=== PATIENT | male | born 1985 | race Hispanic/Latino ===

== ENCOUNTER 2018-08-10 10:59 | Emergency (ER) | payer BC ==
[2018-08-10 11:14] VITALS: O2SAT 99
[2018-08-10 11:15] VITALS: BMI 37.8
--- NOTE | 2018-08-10 11:26 | ED PDOC ---
HPI: Abdomen Time Seen by Provider: 08/10/18 11:04 Chief Complaint (Nursing): Abdominal Pain Chief Complaint (Provider): Abdominal pain History Per: Patient History/Exam Limitations: no limitations Outside of [place] travel?: No Current Symptoms Are (Timing): Still Present Location Of Pain/Discomfort: RLQ, LLQ Quality Of Discomfort: "Pain" Associated Symptoms: Diarrhea. denies: Fever, Nausea, Vomiting Additional History Per: Patient Additional Complaint(s): 32yo male, otherwise well, sent to ER from urgent care for evaluation of lower abdominal pain. Patient reports pain has been present since yesterday and is associated with diarrhea. Patient deneis any associated fever, vomiting, or bleeding. No additional complaints. No medications taken for symptoms. PMD: None provided NKDA Past Medical History Reviewed: Historical Data, Nursing Documentation, Vital Signs Vital Signs: Last Vital Signs Temp 98.3 F 08/10/18 11:14 Pulse 85 08/10/18 11:14 Resp 20 08/10/18 11:14 BP 130/75 08/10/18 11:14 Pulse Ox 99 08/10/18 11:14 - Medical History PMH: No Chronic Diseases - Surgical History Surgical History: No Surg Hx - Family History Family History: States: No Known Family Hx - Home Medications Home Medications: Ambulatory Orders Medication Instructions Recorded Naproxen 1 tab PO BID PRN #14 tab 10/28/15 Penicillin VK [Pen-Vee K] 1 tab PO QID #40 tab 10/28/15 Dicyclomine [Dicyclomine HCl] 10 mg PO Q8 #10 cap 08/10/18 - Allergies Allergies/Adverse Reactions: Allergies Allergy/AdvReac Type Severity Reaction Status Date / Time No Known Allergies Allergy Verified 10/28/15 17:04 Review of Systems ROS Statement: Except As Marked, All Systems Reviewed And Found Negative Constitutional: Negative for: Fever, Chills Gastrointestinal: Positive for: Abdominal Pain, Diarrhea. Negative for: Nausea, Vomiting, Hematochezia, Hematemesis Physical Exam - Reviewed Nursing Documentation Reviewed: Yes Vital Signs Reviewed: Yes - Physical Exam Appears: Positive for: Non-toxic, No Acute Distress Head Exam: Positive for: ATRAUMATIC, NORMAL INSPECTION, NORMOCEPHALIC Skin: Positive for: Normal Color Eye Exam: Positive for: Normal appearance, EOMI, PERRL Neck: Positive for: Supple Cardiovascular/Chest: Positive for: Regular Rate, Rhythm. Negative for: Tachycardia Respiratory: Positive for: Normal Breath Sounds. Negative for: Respiratory Distress Gastrointestinal/Abdominal: Positive for: Soft, Tenderness (mild tenderness bilateral lower abdomen). Negative for: Mass, Guarding, Rebound Back: Positive for: Normal Inspection Extremity: Positive for: Normal ROM. Negative for: Pedal Edema Neurological/Psych: Positive for: Awake, Alert, Oriented (x 3) - Laboratory Results Result Diagrams: 08/10/18 11:40 08/10/18 11:40 - ECG O2 Sat by Pulse Oximetry: 99 (RA) Pulse Ox Interpretation: Normal Medical Decision Making Medical Decision Makinyo male with abdominal pain, r/o appendicitis Plan: -- Labs -- IV Fluids -- CT Abdomen/Pelvis w/ IV contrast Scribe Attestation: Documented by Vee Dixon, acting as a scribe for Bean Escalante MD. Provider Scribe Attestation: All medical record entries made by the Scribe were at my direction and personally dictated by me. I have reviewed the chart and agree that the record accurately reflects my personal performance of the history, physical exam, medical decision making, and the department course for this patient. I have also personally directed, reviewed, and agree with the discharge instructions and disposition. Disposition - Clinical Impression Clinical Impression: Diverticulosis - Patient ED Disposition Is Patient to be Admitted: No Counseled Patient/Family Regarding: Studies Performed, Diagnosis, Need For Followup, Rx Given - Disposition Referrals: Juan J Mccullough MD [Staff Provider] - Disposition: Routine/Home Disposition Time: 14:33 Condition: FAIR Prescriptions: Dicyclomine [Dicyclomine HCl] 10 mg PO Q8 #10 cap Instructions: Diverticulosis Forms: [employer] (Albanian)
[2018-08-10 11:54] LABS: BASO # 0.1 K/uL (0.0-0.2); BASO % 0.8 % (0.0-2.0); EOS # 0.1 K/uL (0.0-0.7); EOS % 1.3 % (0.0-4.0); HEMOGLOBIN 15.9 g/dL (12.0-18.0); LYMPH # 2.2 K/uL (1.0-4.3); LYMPH % 27.3 % (20.0-40.0); MEAN CELL VOLUME 86.8 fl (80.0-94.0); MEAN CORPUSCULAR HGB CONC 35.7 g/dL (33.0-37.0); MEAN PLATELET VOLUME 9.2 fl (7.2-11.7); MONO # 0.5 K/uL (0.0-0.8); MONO % 6.5 % (0.0-10.0); NEUT # 5.1 K/uL (1.8-7.0); NEUT % 64.1 % (50.0-75.0); NRBC % 0.1 % (0.0-0.0); RBC 5.15 Mil/uL (4.40-5.90); RED CELL DISTRIBUTION WIDTH 13.5 % (11.5-14.5); WHITE BLOOD COUNT 7.9 K/uL (4.8-10.8)
[2018-08-10 12:07] LABS: ALB/GLOB RATIO 1.5 (1.0-2.1); ALBUMIN 4.9 g/dL (3.5-5.0); ALT/SGPT 67 U/L (21-72); AST/SGOT 38 U/L (17-59); BLOOD UREA NITROGEN 19 mg/dl (9-20); CALCIUM 9.3 mg/dL (8.4-10.2); GFR NON-AFRICAN AMERICAN > 60
[2018-08-10] MEDS ORDERED: Sodium Chloride 0.9% 50 ML IV ONE (13:00)
[2018-08-10] MEDS ORDERED: Iohexol 300 100 ML IJ ONE (13:00)
--- NOTE | 2018-08-10 14:26 | CT ---
Date of service: 08/10/2018 PROCEDURE: CT Abdomen and Pelvis with contrast HISTORY: Abd pain COMPARISON: Not available TECHNIQUE: Contrast dose: 95 cc Omnipaque 300 Radiation dose: Total exam DLP = 947.62 mGy-cm. This CT exam was performed using one or more of the following dose reduction techniques: Automated exposure control, adjustment of the mA and/or kV according to patient size, and/or use of iterative reconstruction technique. FINDINGS: LOWER THORAX: Unremarkable. LIVER: Unremarkable. No gross lesion or ductal dilatation. GALLBLADDER AND BILE DUCTS: Unremarkable. PANCREAS: Unremarkable. No gross lesion or ductal dilatation. SPLEEN: Mild splenomegaly. The spleen measures approximately 15.8 cm in greatest dimension. No focal mass. ADRENALS: Unremarkable. No mass. KIDNEYS AND URETERS: Unremarkable. No hydronephrosis. No solid mass. VASCULATURE: Unremarkable. No aortic aneurysm. No aortic atherosclerotic calcification or mural plaque present. BOWEL: There is diverticulosis of the transverse, descending and sigmoid colon. There is no evidence of diverticulitis. No bowel obstruction. APPENDIX: Normal appendix. PERITONEUM: Unremarkable. No free fluid. No free air. LYMPH NODES: Unremarkable. No enlarged lymph nodes. BLADDER: Unremarkable. REPRODUCTIVE: Prostate BONES: No acute fracture. OTHER FINDINGS: None. IMPRESSION: Extensive colonic diverticulosis without evidence of diverticulitis. Mild splenomegaly. No other significant abnormality.
[2018-08-10 14:49] VITALS: BP 130/77; PULSE 84; RESP 18; TEMP 99.3
== END 2018-08-10 14:30 | disposition home or self-care (01) ==
LOC: H.ER 10:59
DX: K57.30 Diverticulosis of large intestine without perforation or abscess without bleeding (principal); Z79.899 Other long term (current) drug therapy
CPT/HCPCS: 74177; 80053; 85025; 99284; Q9967